=== PATIENT | male | born 1975 | race Two or more races ===

== ENCOUNTER 2024-03-19 11:59 | Outpatient (REF) | payer MEDICAID, OTHER, SELFPAY ==
--- NOTE | ~2024-03-19 | XR_ITS ---
EXAMINATION: XR HAND, BILATERAL CLINICAL INFORMATION: Pain COMPARISON: None available at the time of this dictation. TECHNIQUE: Frontal oblique lateral right and left hand FINDINGS: Mild degenerative osteoarthritic changes involving the first carpometacarpal joints bilaterally. There is no fracture or dislocation. Radiocarpal, intercarpal, carpometacarpal, metacarpophalangeal and interphalangeal joints are intact. There are no osteolytic or osteoblastic lesions. There are no bone erosions. Surrounding soft tissue unremarkable. XR/XR hand RT min 3V IMPRESSION: No evidence of erosive arthritis. Mild degenerative osteoarthritic changes.
--- NOTE | ~2024-03-19 | XR_ITS ---
EXAMINATION: XR HAND, BILATERAL CLINICAL INFORMATION: Pain COMPARISON: None available at the time of this dictation. TECHNIQUE: Frontal oblique lateral right and left hand FINDINGS: Mild degenerative osteoarthritic changes involving the first carpometacarpal joints bilaterally. There is no fracture or dislocation. Radiocarpal, intercarpal, carpometacarpal, metacarpophalangeal and interphalangeal joints are intact. There are no osteolytic or osteoblastic lesions. There are no bone erosions. Surrounding soft tissue unremarkable. XR/XR hand LT min 3V IMPRESSION: No evidence of erosive arthritis. Mild degenerative osteoarthritic changes.
--- NOTE | ~2024-03-19 | XR_ITS ---
EXAMINATION: XR knee LT 4V, XR knee RT 4V CLINICAL INFORMATION: Reason for Exam b/l hand and knee pain COMPARISON: None available at the time of this dictation. TECHNIQUE: frontal, lateral, tunnel and patella sunrise views 4 views 8 side total of 8 views. FINDINGS: BONES: No fracture or dislocation is present. JOINTS: Mild narrowing of joint spaces and small developed osteophyte from articular edges symmetrically involving both knees medial, lateral compartments and patellofemoral joints. No joint effusions on either side. Articular surfaces remain smooth. SOFT TISSUE: Normal XR/XR knee RT 4V IMPRESSION: Mild bilateral tricompartment degenerative osteoarthritis involving medial and lateral compartments bilaterally.
--- NOTE | ~2024-03-19 | XR_ITS ---
EXAMINATION: XR knee LT 4V, XR knee RT 4V CLINICAL INFORMATION: Reason for Exam b/l hand and knee pain COMPARISON: None available at the time of this dictation. TECHNIQUE: frontal, lateral, tunnel and patella sunrise views 4 views 8 side total of 8 views. FINDINGS: BONES: No fracture or dislocation is present. JOINTS: Mild narrowing of joint spaces and small developed osteophyte from articular edges symmetrically involving both knees medial, lateral compartments and patellofemoral joints. No joint effusions on either side. Articular surfaces remain smooth. SOFT TISSUE: Normal XR/XR knee LT 4V IMPRESSION: Mild bilateral tricompartment degenerative osteoarthritis involving medial and lateral compartments bilaterally.
== END 2024-03-19 12:00 | disposition home or self-care (01) ==
LOC: HO.HHCX 11:59
PROVIDERS: Visit Provider Family Medicine
DX: M25.562 Pain in left knee (principal); M25.561 Pain in right knee; M79.642 Pain in left hand; M79.641 Pain in right hand
CPT/HCPCS: 36415; 73130; 73564; 80048; 80061; 80076; 82043; 82306; 82570; 83036; 84439; 84443; 85027; 86592; 86704; 86706; 86708; 86803; 87340; 87389

== ENCOUNTER 2024-03-19 12:31 | Outpatient (REF) | payer MEDICAID, SELFPAY ==
[2024-03-19 13:40] LABS: Hematocrit 44.5 % (42.0-52.0); Hemoglobin 15.2 g/dl (14.0-18.0); Mean Corpuscular HGB Conc 34.2 g/dl (31.0-36.0); Mean Corpuscular Hemoglobin 30.6 pg (27.0-33.0); Mean Corpuscular Volume 89.7 fL (80.0-98.0); Mean Platelet Volume 11.4 fL (9.4-12.4); Platelet Count 232 X10*3/uL (160-400); Red Blood Count 4.96 X10*6/uL (4.60-5.80); Red Cell Distribution Width 12.9 % (11.0-16.0); White Blood Count 6.8 X10*3/uL (4.8-10.8)
[2024-03-19 14:05] LABS: Estimated Average Glucose 111 mg/dL; Hemoglobin A1c % 5.5 % (<6.0)
[2024-03-19 14:29] LABS: Creatinine Urine 45.04 mg/dL; Microalbum/Creatinine Ratio Ur 55.5 ug/mg cr (<30)
[2024-03-19 14:31] LABS: Alanine Aminotransferase 25 U/L (0-40); Albumin Level 4.7 g/dL (3.5-5.0); Alkaline Phosphatase 141 U/L (39-117); Anion Gap 11 (12-20); Aspartate Amino Transferase 23 U/L (5-37); Bilirubin Direct 0.2 mg/dL (0.0-0.5); Bilirubin Total 0.7 mg/dL (0.0-1.0); Blood Urea Nitrogen 16 mg/dL (9-16); Calcium 9.5 mg/dL (8.4-10.2); Carbon Dioxide 26 mmol/L (22-29); Chloride 106 mmol/L (96-108); Cholesterol 247 mg/dL (<200); Estimated Glomerular Filt Rate > 60; Glucose Random 112 mg/dL (60-115); HDL Cholesterol 53 mg/dL (>40); LDL Cholesterol Calculated 177 mg/dL (<100); Potassium 4.4 mmol/L (3.3-5.1); Sodium 139 mmol/L (135-145); Total Protein 8.4 g/dL (6.5-8.0); Triglycerides 88 mg/dL (<150)
[2024-03-19 14:47] LABS: Free T4 (Free Thyroxine) 0.88 ng/dL (0.71-1.85); Thyroid Stimulating Hormone 0.22 uIU/mL (0.32-4.0); Vitamin D 25-OH Total 12.6 ng/mL (>30)
[2024-03-20 04:33] LABS: HBS Num1 0.31 mIU/mL (0-7.99); HBc Num1 0.15 S/CO (0.00-0.79); HBsAGNum1 0.23 S/CO (0.00-0.99); HIV AB/AG Nonreactive (Nonreactive); HIV Num 1 0.05 S/CO (0.00-0.99); Hepatitis A Antibody IgG REACTIVE (Nonreactive); Hepatitis B Core Antibody Nonreactive (Nonreactive); Hepatitis B Surface Antigen Negative (Negative); ~HepC Num1 0.14 S/CO (0.00-0.79); ~Hepatitis A Antibody IgG 11.49 S/CO (0.00-0.99); ~Hepatitis B Surface Antibody NONREACTIVE (Nonreactive); ~Hepatitis C Antibody Nonreactive (Nonreactive)
[2024-03-22 09:44] LABS: RPR Rapid Plasma Reagin NON-REACTIVE (NON-REACTIVE)
== END 2024-03-19 12:32 | disposition home or self-care (01) ==
LOC: HO.HHCL 12:31
PROVIDERS: Visit Provider Family Medicine
DX: Z00.00 Encounter for general adult medical examination without abnormal findings (principal); I10 Essential (primary) hypertension; M25.50 Pain in unspecified joint; Z68.27 Body mass index [BMI] 27.0-27.9, adult
CPT/HCPCS: 36415; 80048; 80061; 80076; 82043; 82306; 82570; 83036; 84439; 84443; 85027; 86592; 86704; 86706; 86708; 86803; 87340; 87389

== ENCOUNTER 2024-07-13 07:59 | Outpatient (REF) | payer MEDICAID, SELFPAY ==
--- NOTE | ~2024-07-13 | XR_ITS ---
EXAMINATION: XR ORBITS CLINICAL INDICATION: Pre-MRI screening. TECHNIQUE: 2 views of the paranasal sinuses. Two Martinez views are submitted. No Steven view is submitted. COMPARISON: None. FINDINGS: No radiopaque foreign body is identified. The right maxillary sinus appears completely opacified. Left maxillary sinus mucosal thickening. Recommend clinical correlation. The bones appear unremarkable. XR/XR pre mri screening IMPRESSION: Findings as above. Electronically signed by: Malcolm Francis MD 07/13/2024 10:24 AM GILMA
== END 2024-07-13 08:00 | disposition home or self-care (01) ==
LOC: HO.XRAY 07:59
PROVIDERS: PCP Family Medicine; Visit Provider Radiology Diagnostic Radiology
DX: Z13.89 Encounter for screening for other disorder (principal)

== ENCOUNTER 2024-07-19 10:56 | Outpatient (REF) | payer MEDICAID, SELFPAY ==
[2024-07-19] MEDS: gadobutroL 10 ML VIAL IVPUSH (12:02)
== END 2024-07-19 10:57 | disposition home or self-care (01) ==
LOC: HO.MRI 10:56
PROVIDERS: PCP Family Medicine; Visit Provider Family Medicine
DX: H31.8 Other specified disorders of choroid (principal)
CPT/HCPCS: 70553; A9585

== ENCOUNTER 2025-06-27 08:53 | Outpatient (REF) | payer MEDICAID, SELFPAY ==
--- OUTSIDE RECORDS SUMMARY | 2025-06-27 09:28 | XMS_ITS | Clinical Summary ---
Author Organization [employer] Address [address] [facility] [address] [place] [address] Care Team Providers Care Audiovisual Lead Technician Name Role Phone AkiJodie Primary Care Provider Allergies Active Allergy Reactions Criticality Noted Date Comments Pollen Extract Runny nose 01/01/2024 Medications ibuprofen 800 MG tablet Take 400 mg by mouth every 6 (six) hours if needed for mild pain. Active Blood Pressure kit 1 each 1 (one) time per week. 1 kit 03/19/20 24 Active Diclofenac Sodium 1 % gel Apply 2 g topically if needed in the morning, at noon, in the evening, and at bedtime (pain). 150 g 3 03/19/20 24 Active baclofen (Lioresal) 10 MG tablet TAKE 1 TABLET THREE TIMES DAILY IN THE MORNING, AT NOON, AND AT BEDTIME FOR MUSCLE SPASMS 60 tablet 1 5 8:57 AM EST 07/05/20 24 Active fluticasone (Flonase) 50 MCG/ACT nasal spray Administer 1 spray into each nostril Once per day. Shake gently. Before first use, prime pump. After use, clean tip and replace cap. 48 g 12/01/19 25 Active acetaminophen (Tylenol 8 Hour) 650 MG ER tablet TAKE 1 TABLET EVERY 8 HOURS NEEDED FOR MILD PAIN. DO NOT BREAK, CRUSH, DISSOLVE OR CHEW 40 tablet 1 5 8:57 AM EST 01/29/20 25 Active Additional Information Patient not taking.Reported on 04/22/2025 cholecalcifer ol (Vitamin D-3) 50 MCG (1999 UT) capsule TAKE 1 CAPSULE BY MOUTH EVERY DAY 90 capsule 1 03/25/20 25 Active hydroCHLOROth iazide (HYDRODiuril) 25 MG tablet Take 1 tablet (25 mg) by mouth Once per day. 90 tablet 3 06/21/20 25 Active losartan (Cozaar) 25 MG tablet Take 1 tablet (25 mg) by mouth Once per day. 90 tablet 3 1:57 PM EST 06/21/20 25 026 Active losartan (Cozaar) 25 MG tablet Take 1 tablet (25 mg) by mouth Once per day. 90 tablet 03/25/20 24 025 Discontinued(Re order (will not trigger notification to Pharmacy)) hydroCHLOROth iazide (HYDRODiuril) 25 MG tablet TAKE 1 TABLET BY MOUTH DAILY 90 tablet 1 04/20/20 25 025 Discontinued(Re order (will not trigger notification to Pharmacy)) Active Problems Problem Noted Date Diagnosed Date Hyperopia 06/21/2025 Vitamin D deficiency 06/21/2025 Dental caries 04/22/2025 Periodontal disease 04/22/2025 Healthcare maintenance 03/25/2024 Assessment & Plan (03/25/2024 5:51 PM EDT): Spoke w PCP today who will f up recent abnormal labs ,order today TFT to repeat in 1 week Osteoarthritis 03/19/2024 BMI 27.0-27.9,adult 03/19/2024 Essential hypertension 03/19/2024 Assessment & Plan (03/25/2024 5:51 PM EDT): BP 164/90 Manually in his left arm -improved from before -labs 03/19/24 Microalb + chem and CBC wnl,Lfts wnl,only alk phos 141 ,TSH 0.22 ,normal T4 ,lipids elevated ,low vit D -advised Pt to avoid chronic NSAIDS use -states using aprox 1-2 a month -advised low salt diet,, diet ,exercise -start losartan 25 mg daily -will need to monitor w PCP chem for recently started HDCTZ and now losartan chosen for proteinuria -has apt w RN to check BP 03/31/2024 Encounters Date Type Department Care Team Description 06/21/2025 10:00 AM EST Office Visit [facility] [address] [place] [id number] Jodie Prabhakar DO Essential hypertension (Primary Dx); Low TSH level; Vitamin D deficiency; Healthcare maintenance; Encounter for immunization 06/21/2025 Travel 06/18/2025 Telephone [facility] [address] [place] [address] Jodie Prabhakar DO Chart Prep 06/14/2025 Patient Outreach [facility] [address] [place] [address] Jodie Prabhakar DO Pre-visit Planning ((Unable to reach for PVP screening, LVM) to be completed in office ) 06/08/2025 Telephone [facility] [address] [place] [address] Jodie Prabhakar DO Recall Appointment 06/08/2025 Travel 05/16/2025 Travel 04/22/2025 3:30 PM EDT Office Visit [facility] [address] [place] [address] Raul Padron DDS Dental caries (Primary Dx); Periodontal disease 04/20/2025 Refill [facility] [address] [place] [address] Jodie Prabhakar DO 03/31/2025 9:00 AM EDT Office Visit [facility] [address] [place] [address] Nuha Taylor, OD Choroidal fold of right eye (Primary Dx) 03/31/2025 Travel from Last 3 Months Immunizations Immunization Administration Dates Next Due Pneumococcal Conjugate PCV 20 06/21/2025 Tdap 03/19/2024 Family History Medical History Relation Name Comments Cancer Father Diabetes Mother Hypertension Mother No Known Problems Sister Relation Name Status Comments Father Mother Sister Social History Tobacco Use Types Packs/Day Years Used Date Smoking Tobacco: Never Smokeless Tobacco: Never Tobacco Cessation:Counseling Given: Not Answered Alcohol Use Standard Drinks/Week Comments Not Currently 0 (1 standard drink = 0.6 oz pur e alcohol) Depression Answer Date Recorded Patient Health Questionnaire-9 Score 2 03/19/2024 Patient Health Questionnaire-9 Score 2 03/19/2024 Last PHQ-9: Questionnaire Data Not on file 0 03/19/2024 Housing Stability Answer Date Recorded What is your housing situation today? I have jasvir macias 03/05/[address] you li ve. Do you have problems with any of the following? None of the above 03/05/2024 Food Insecurity Answer Date Recorded Within the past 12 months, y ou worried that your food would run out before you got money to buy more: Never True 03/05/2024 Within the past 12 months,th e food you bought just didn't last and you didn't have enough money to get more: Never True 09/2023 Transportation Answer Date Recorded In the past 12 months, has l ack of transportation kept you from medical appts, meetings, work or from getting things needed for daily living? No 03/05/2024 Utilities Answer Date Recorded In the past 12 months, has t he electric, gas, oil or water company threatened to shut off services in your home? No 03/05/2024 Depression Answer Date Recorded Patient Health Questionnaire-2 Score 0 03/19/2024 Internet Access Answer Date Recorded Internet Access Q1 Yes 04/02/2024 Internet Access Q2 Not on file 04/02/2024 Sex and Gender Information Value Date Recorded Sex Assigned at Male 01/01/2024 8:51 AM EDT Legal Sex Male 10:28 AM EDT Gender Identity Male 01/01/2024 8:51 AM EDT Sexual Orientation Straight 01/01/2024 8: 51 AM EDT Last Filed Vital Signs Vital Sign Reading Time Taken Comments Blood Pressure 148/90 06/21/2025 9:59 AM EST Pulse 73 06/21/2025 9:59 AM EST Temperature 35.8 C (96.4 F) 06/21/2025 9:59 AM EST Respiratory Rate 20 06/21/2025 9:59 AM EST Oxygen Saturation 98% 06/21/2025 9:59 AM EST Inhaled Oxygen Concentration - - Weight 77.6 kg (171 lb) 06/21/2025 9:59 AM EST Height 167.6 cm (5' 6 ) 06/21/2025 9:59 AM EST Body Mass Index 27.6 06/21/2025 9:59 AM EST Plan of Treatment Upcoming Encounters Date Type Department Care Team (Late st Contact Info) Description 10/06/2025 10:15 AM EST Office Visit [facility] [address] [place] [address] Lisy Carrillo Health Maintenance Due Date Last Done Comments CT Colonography 1973 Colonoscopy 1973 Colorectal Cancer Screening 1973 FIT DNA/Cologuard 1973 FIT 1973 FOBT 1973 Sigmoidoscopy 1973 Disability Screening 1973 Alcohol/Substance Use Screening 1985 Family Planning (PISQ) 1988 Hepatitis B Vaccines (1 of 3 - 19+ 3-dose series) 1992 Zoster Vaccines (1 of 2) 2023 Dental Prophylaxis 07/04/2024 01/01/2024 SDOH Screening 03/05/2025 03/05/2024 Depression Screening 03/19/2025 03/19/2024, 03/19/2024 COVID-19 Vaccine (2 - 2024-2 6 season) 2025 11/10/2020 Influenza Vaccine (#1) 2025 Dental Oral Exam 10/21/2025 04/22/2025, 01/01/2024 Tobacco Screening 04/22/2026 04/22/2025 Dental X-Ray: Bitewings 04/23/2026 04/22/20, 01/01/2024 Dental X-Ray: Full Mouth 01/01/2027 01/01/2024 Lipid Panel 03/19/2029 03/19/2024 DTaP/Tdap/Td Vaccines (2 - T d or Tdap) 03/19/2034 03/19/2024 RSV Patients and Patients Aged 60 years or older (1 - 1-dose 75+ series) 2048 HIV Screening Completed 03/19/2024 Hepatitis C Screening Completed 03/19/2024 Pneumococcal Vaccine: 50+ Years Completed 06/21/2025 HIB Vaccines Aged Out No longer eligi ble based on patient's age to complete this topic HPV Vaccines Aged Out No longer eligi ble based on patient's age to complete this topic Hepatitis A Vaccines Aged Out No long er eligible based on patient's age to complete this topic IPV Vaccines Aged Out No longer eligi ble based on patient's age to complete this topic Meningococcal B Vaccine Aged Out No l onger eligible based on patient's age to complete this topic Meningococcal Vaccine Aged Out No nikhil can eligible based on patient's age to complete this topic RSV under 20 months Aged Out No longe r eligible based on patient's age to complete this topic Rotavirus Vaccines Aged Out No longer eligible based on patient's age to complete this topic Procedures Procedure Name Priority Date/Time Associated Diagnosis Comments CASE PRESENTATION, DETAILED AND EXTENSIVE TREATMENT PLANNING Routine 04/22/2025 3:30 PM EDT BITEWINGS - 4 RADIOGRAPHIC IMAGES Routine 04/22/2025 3:30 PM EDT INTRAORAL - PERIAPICAL FIRST RADIOGRAPHIC IMAGE Routine 04/22/2025 3:30 PM EDT INTRAORAL - PERIAPICAL EACH ADDITIONAL RADIOGRAPHIC IMAGE Routine 04/22/2025 3:30 PM EDT PERIODIC ORAL EVALUATION - ESTABLISHED PATIENT Routine 04/22/2025 3:30 PM EDT OCT, RETINA - OU - BOTH EYES Routine 03/31/2025 9:00 AM EDT Choroidal fold of right eye HEPATITIS C AB W/REFL TO HCV RNA, QN, PCR Routine 03/19/2024 12:34 PM EDT Routine history and physical examination of adult Essential hypertension Polyarthralgia BMI 27.0-27.9,adult HIV 1/2 ANTIGEN/ANTIBODY, FOURTH GENERATION W/RFL Routine 03/19/2024 12:34 PM EDT Routine history and physical examination of adult Essential hypertension Polyarthralgia BMI 27.0-27.9,adult LIPID PANEL, STANDARD Routine 03/19/2024 12:34 PM EDT Routine history and physical examination of adult Essential hypertension Polyarthralgia BMI 27.0-27.9,adult PROPHYLAXIS - ADULT Routine 01/01/2024 1 1:30 AM EDT Necrosis of dental pulp Periodontal disease Dental caries Dental abscess INTRAORAL - COMPLETE SERIES OF RADIOGRAPHIC IMAGES Routine 01/01/2024 11:30 AM EDT Necrosis of dental pulp Periodontal disease Dental caries Dental abscess from Last 3 Months or Most Recently Relevant to Health Maintenance Results * OCT, Retina - OU - Both Eyes (03/31/2025 9:00 AM EDT) Narrative Nuha Taylor, OD - 04/05/2025 4:11 PM EDT OCT [facility] [employer] Optical Coherence Tomography Interpretation Report Reliability: OD: 61, good quality image OS: 61, good quality image Measurements: Central subfoveal thickness OD: 236 microns OS: 226 microns Test findings: OD: Horizontal chorioretinal folds extending from optic nerve throughout posterior pole, all layers intact, no IRF/subretinal fluid (SRF). Some drusen superior macula - stable OS: No chorioretinal folds present, all layers intact, no IRF/subretinal fluid (SRF) - stable Impression and Plan: Idiopathic chorioretinal folds left eye (OS). Monitor. Nuha Taylor OD OPHTH TOMOGRAPHY Final Result * Hepatitis C Antibody with Reflex to HCV, RNA, Quantitative, Real-Time PCR (03/19/2024 12:34 PM EDT) Hepatitis C Antibody Nonreactive Nonreactive [facility] Comment:Antibodies to HCV no t detected; does not exclude early acuteHCV infection. Blood Venous blood specimen / Unknown 03/19/2024 12:34 PM EDT 03/19/2024 1:16 PM EDT Jodie Prabhakar DO LAB BLOOD ORDERABLES Final R esult [facility] [address] [place] [phone] * HIV-1/2 Antigen and Antibodies, Fourth Generation, with Reflexes (03/19/2024 12:34 PM EDT) HIV AB/AG Nonreactive Nonreactive [facility] Comment:HIV-1 p24 Ag and/or HIV-1/HIV-2 Ab not detected.A test result that is nonreactive does not exclude thepossibility of exposure to or infection with HIV-1 and/orHIV-2. Nonreactive results in this assay for individualswith prior exposure to HIV-1 and/or HIV-2 may be due toantigen and antibody levels that are below the limit ofdetection of this assay.The [employer] HIV Ag/Ab Combo assay result andsupplemental assay results should be interpreted inconjunction with the patient's clinical presentation,history and other laboratory results. If the results areinconsistent with clinical evidence, additional testing issuggested to confirm the result. Blood Venous blood specimen / Unknown 03/19/2024 12:34 PM EDT 03/19/2024 1:16 PM EDT Jodie Prabhakar LAB BLOOD ORDERABLES Final R esult Performing Organization Address [facility] Co de Phone Number [facility] [address] [place] [address] [phone] * (ABNORMAL) Lipid Panel, Standard (03/19/2024 12:34 PM EDT) Triglycerides 88 <150 mg/dL [facility] Comment:Desirable Triglyceri de: less than 150 mg/dLBorderline High Triglyceride 150-199 mg/dLHigh Triglyceride: 200-499 mg/dLVery High Triglyceride: greater than or equal to 5OO mg/dL Cholesterol 247(H) <200 mg/dL [facility] Comment:Desirable Cholestero l: less than 200 mg/dLBorderline High Cholesterol: 200-239 mg/dLHigh Cholesterol: greater than 239 mg/dL LDL Cholesterol Calculated 177(H) <100 mg/dL [facility] Comment:Desirable LDL: less than 100 mg/dLNear Optimal/Above Optimal LDL: 110- 129 mg/dLBorderline High LDL: 130-159 mg/dLHigh LDL: 160-189 mg/dLVery High LDL: greater than or equal to 190 mg/dL HDL Cholesterol 53 >40 mg/dL [facility] Comment:Desirable HDL: great er than 40 mg/dL Note: This HDL assay may give artificially low results in patients with liver disease. Blood Venous blood specimen / Unknown 03/19/2024 12:34 PM EDT 03/19/2024 1:16 PM EDT Jodie Prabhakar DO LAB BLOOD ORDERABLES Final R esult Performing Organization Address [facility]/ZIP Co de Phone Number [facility] [address] [place] [address] [phone] from Last 3 Months or Most Recently Relevant to Health Maintenance Insurance [place] [facility] MEDICAID LIMITED ADULT DENTAL - HSN FULL ([place]) [place] [id number] [place] [id number] Care Teams Audiovisual Lead Technician Relationship Specialty Start Date End Date Jodie Prabhakar DO [address] [place] [address] [place] [address] PCP - General Family Medicine 03/19/24
--- OUTSIDE RECORDS SUMMARY | 2025-06-27 09:28 | XMS_ITS | Encounter Summary ---
Author Organization [employer] Address [address] [facility] [address] [place] [address] Care Team Providers Care Home Agent Name Role Phone Jodie Prabhakar DO Primary Care Provider + [phone] Reason for Visit * Reason Onset Date Comments Med Refill 10/05/2024 Encounter Details Date Type Department Care Team ([facility] st Contact Info) Description 10/05/2024 Refill [facility] [address] [place] [address] Jodie Prabhakar DO [address] [place] [address] Social History Tobacco Use Types Packs/Day Years Used Date Smoking Tobacco: Never Smokeless Tobacco: Never Alcohol Use Standard Drinks/Week Comments Not Currently [...] Orientation Straight 01/01/2024 8: 51 AM EDT documented as of this encounter Plan of Treatment Upcoming Encounters Date Type Department Care Team (Late st Contact Info) Description 10/06/2025 10:15 AM EST Office Visit [facility] [address] [place] [address] Lisy Carrillo documented as of this encounter Visit Diagnoses Not on filedocumented in this encounter Additional Health Concerns Assessment Noted Time PHQ-9 Depression Total Score: 2 03/19/20 24 10:26 AM EDT documented as of this encounter Care Teams Home Agent Relationship Specialty Start Date End Date Jdoie Prabhakar DO [address] [place] [address] PCP - General Family Medicine 03/19/24 documented as of this encounter
--- OUTSIDE RECORDS SUMMARY | 2025-06-27 09:28 | XMS_ITS | Encounter Summary ---
Author Organization [employer] Address [address] [facility] [address] [place] [address] Care Team Providers Care Corporate Traffic Manager Name Role Phone Jodie Prabhakar DO Primary Care Provider + [phone] Reason for Visit * Reason Onset Date Comments Med Refill 11/27/2024 Encounter Details Date Type Department Care Team ([facility] st Contact Info) Description 11/27/2024 Refill [facility] [address] [place] [address] Jodie Prabhakar DO [address] [place] [address] Social History Tobacco Use Types Packs/Day Years [...] Description 10/06/2025 10:15 AM EST Office Visit [facility] [address] [place] [address] Lisy Carrillo documented as of this encounter Visit Diagnoses Not on filedocumented in this encounter Additional Health Concerns Assessment Noted Time PHQ-9 Depression Total Score: 2 03/19/20 24 10:26 AM EDT documented as of this encounter Care Teams Corporate Traffic Manager Relationship Specialty Start Date End Date Jodie Prabhakar DO [address] [place] [address] PCP - General Family Medicine 03/19/24 documented as of this encounter
[2025-06-27 11:29] LABS: Hematocrit 47.0 % (42.0-52.0); Hemoglobin 15.8 g/dl (14.0-18.0); Mean Corpuscular HGB Conc 33.6 g/dl (31.0-36.0); Mean Corpuscular Hemoglobin 31.0 pg (27.0-33.0); Mean Corpuscular Volume 92.3 fL (80.0-98.0); NRBC Abs Auto 0.000 X10*3/uL (0.0-0.012); NRBC Pct Auto 0.0 /100WBC (0.0-0.2); Platelet Count 201 X10*3/uL (160-400); Red Blood Count 5.09 X10*6/uL (4.60-5.80); White Blood Count 8.0 X10*3/uL (4.8-10.8)
[2025-06-27 12:14] LABS: HBS Num1 0.00 mIU/mL (0-7.99); HBsAGNum1 0.50 S/CO (0.00-0.99); Hepatitis B Surface Antigen Negative (Negative); ~HepC Num1 0.10 S/CO (0.00-0.79); ~Hepatitis B Surface Antibody NONREACTIVE (Nonreactive); ~Hepatitis C Antibody Nonreactive (Nonreactive)
[2025-06-27 15:13] LABS: Alanine Aminotransferase 41 U/L (0-40); Albumin Level 4.6 g/dL (3.5-5.0); Alkaline Phosphatase 147 U/L (39-117); Anion Gap 12 (12-20); Aspartate Amino Transferase 32 U/L (5-37); Blood Urea Nitrogen 14 mg/dL (9-16); Calcium 9.3 mg/dL (8.4-10.2); Carbon Dioxide 26 mmol/L (22-29); Chloride 107 mmol/L (96-108); Cholesterol 233 mg/dL (<200); Estimated Glomerular Filt Rate > 60; Free T4 (Free Thyroxine) 0.89 ng/dL (0.71-1.85); HDL Cholesterol 43 mg/dL (>40); Potassium 3.8 mmol/L (3.3-5.1); Sodium 141 mmol/L (135-145); Thyroid Stimulating Hormone 1.00 uIU/mL (0.32-4.0); Total Protein 8.0 g/dL (6.5-8.0); Triglycerides 199 mg/dL (<150)
== END 2025-06-27 08:54 | disposition home or self-care (01) ==
LOC: HO.HHCL 08:53
PROVIDERS: PCP Family Medicine; Visit Provider Family Medicine
DX: I10 Essential (primary) hypertension (principal); Z11.3 Encounter for screening for infections with a predominantly sexual mode of transmission; Z11.59 Encounter for screening for other viral diseases
CPT/HCPCS: 36415; 80048; 80061; 80076; 82306; 83036; 84439; 84443; 85027; 86592; 86706; 86803; 87340

== ENCOUNTER 2025-06-28 08:09 | Outpatient (REF) | payer MEDICAID, SELFPAY ==
--- OUTSIDE RECORDS SUMMARY | 2025-06-28 08:21 | XMS_ITS | Clinical Summary ---
Author Organization [employer] Address [address] [facility] 7t [place] [address] Care Team Providers Care Rental Car Ferry Driver Name Role Phone AkiJodie Primary Care Provider [phone] Allergies Active Allergy Reactions Criticality Noted Date [...] Description 06/21/2025 10:00 AM EST Office Visit [facility] [address] [place] [phone] Jodie Prabhakar DO Essential hypertension (Primary Dx); Low TSH level; Vitamin D deficiency; Healthcare maintenance; Encounter for immunization 06/21/2025 Travel 06/18/2025 Telephone [facility] [address] [place] [address] Jodie Prabhakar DO Chart Prep 06/14/2025 Patient Outreach [facility] [address] [place] [address] Jodie Prabhakar DO Pre-visit Planning ((Unable to reach for PVP screening, LVM) to be completed in office ) 06/08/2025 Telephone [facility] [address] [place] [address] Jodie Prabhakar DO Recall Appointment 06/08/2025 Travel 05/16/2025 Travel 04/22/2025 3:30 PM EDT Office Visit [facility] ADULT DENTAL [address] [place] [address] Raul Padron DDS Dental caries (Primary Dx); Periodontal disease 04/20/2025 Refill [facility] [address] [place] [address] Jodie Prabhakar DO 03/31/2025 9:00 AM EDT Office Visit [facility] OPTOMETRY [address] [place] [address] Nuha Taylor, OD Choroidal fold of right [...] Description 10/06/2025 10:15 AM EST Office Visit [facility] ADULT DENTAL [address] [place] [address] Lisy Carrillo Health Maintenance Due Date Last [...] Screening 04/22/2026 04/22/2025 Dental X-Ray: Bitewings 04/23/2026 04/22/20 25, 01/01/2024 Diabetes: Hemoglobin A1C 06/27/2026 025, 03/19/2024 Dental X-Ray: Full Mouth 01/01/2027 01/01/2024 Lipid Panel 06/27/2030 06/27/2025, 03/19/2024 DTaP/Tdap/Td Vaccines (2 - T d or Tdap) 03/19/2034 03/19/2024 RSV Patients and Patients Aged 60 years or older (1 - 1-dose 75+ series) 2048 HIV Screening Completed 03/19/2024 Pneumococcal Vaccine: 50+ Years Completed 06/21/2025 Hepatitis C Screening Completed 06/27/2025 , 03/19/2024 HIB Vaccines Aged Out No longer eligi [...] Procedure Name Priority Date/Time Associated Diagnosis Comments HEPATITIS B SURFACE ANTIBODY, QUALITATIVE Routine 06/27/2025 9:09 AM EST Essential hypertension HEPATITIS C AB W/REFL TO HCV RNA, QN, PCR Routine 06/27/2025 9:09 AM EST Essential hypertension HEPATITIS B SURFACE ANTIGEN, EIA Routine 06/27/2025 9:09 AM EST Essential hypertension CBC Routine 06/27/2025 9:09 AM EST Essential hypertension BASIC METABOLIC PANEL Routine 06/27/2025 9:09 AM EST Essential hypertension HEMOGLOBIN A1C Routine 06/27/2025 9:09 AM EST Essential hypertension HEPATIC FUNCTION PANEL Routine 06/27/2025 9:09 AM EST Essential hypertension TSH Routine 06/27/2025 9:09 AM EST Essential hypertension LIPID PANEL, STANDARD Routine 06/27/2025 9:09 AM EST Essential hypertension VITAMIN D,25-OH,TOTAL,IA Routine 06/27/2025 9:09 AM EST Essential hypertension T4, FREE Routine 06/27/2025 9:09 AM EST Essential hypertension CASE PRESENTATION, DETAILED AND EXTENSIVE TREATMENT PLANNING [...] AM EDT Choroidal fold of right eye HIV 1/2 ANTIGEN/ANTIBODY, FOURTH GENERATION W/RFL Routine [...] Recently Relevant to Health Maintenance Results * Vitamin D, 25-Hydroxy, Total, Immunoassay (06/27/2025 9:09 AM EST) Vitamin D 25-OH Total 33.0 >30 ng/mL [facility] Comment: Health Based Reference Values*< 20 ng/mL Jonsuvthl18-54 ng/mL Insufficient> 30 ng/mL Sufficient*Concepción ORNELAS. N Engl J Med. 2007;357:266-280There is no well-established upper level of normal vitamin Dlevels. Some laboratories use 50 ng/mL as an upper limit ofnormal. However, toxicity is patient-dependent and may occurat any level. Careful correlation with the patient'spresentation is necessary and, if there is concern forvitamin D toxicity, treatment should be consideredirrespective of the serum level.Care must be taken in interpreting Vitamin D results fromdifferent laboratories and methodologies. Published datademonstrated that results from patients undergoinghemodialysis may show a negative bias when tested withvarious automated 25-OH vitamin D assays when compared toLC-MS/MS.When testing samples from patients whose predominant form ofVitamin D is Vitamin D2, such as patients receiving VitaminD2 supplementation, results that are subtherapeutic shouldbe confirmed with another method such as LC-MS/MS. Blood Venous blood specimen / Unknown 06/27/2025 9:09 AM EST 06/27/2025 11:01 AM EST Jodie Prabhakar DO LAB BLOOD ORDERABLES Final R esult Performing Organization Address [facility]/ZIP Co de Phone Number [facility] [address] [place] [phone] * Hepatitis C Antibody with Reflex to HCV, RNA, Quantitative, Real-Time PCR (06/27/2025 9:09 AM EST) Hepatitis C Antibody Nonreactive Nonreactive [facility] Comment:Antibodies to HCV no t detected; does not exclude early acuteHCV infection. Blood Venous blood specimen / Unknown 06/27/2025 9:09 AM EST 06/27/2025 11:01 AM EST Jodie Prabhakar DO LAB BLOOD ORDERABLES Final R esult Performing Organization Address [facility] Co de Phone Number [facility] [address] [place] [phone] * Hepatitis B surface antigen, EIA (06/27/2025 9:09 AM EST) Pathologist [facility] Hepatitis B Surface Ag Negative Negative [facility] Blood Venous blood specimen / Unknown 06/27/2025 9:09 AM EST 06/27/2025 11:01 AM EST Jodie Aki DO LAB BLOOD ORDERABLES Final R esult Performing Organization Address City/[facility] Co de Phone Number [facility] [address] [place] [phone] * Hepatitis B Surface Antibody, Qualitative (06/27/2025 9:09 AM EST) ~Hepatitis B Surface Antibody NONREACTIVE Nonreactive [facility] Comment:Nonreactive: < 8.00 mIU/mL Blood Venous blood specimen / Unknown 06/27/2025 9:09 AM EST 06/27/2025 11:01 AM EST Jodie Prabhakar DO LAB BLOOD ORDERABLES Final R esult [facility] [address] [place] [phone] * CBC (06/27/2025 9:09 AM EST) White Blood Count 8.0 4.8 - 10.8 X10*3/uL [facility] Red Blood Count 5.09 4.60 - 5.80 X10*6/uL [facility] Hemoglobin 15.8 14.0 - 18.0 g/dl [facility] Hematocrit 47.0 42.0 - 52.0 % [facility] Mean Corpuscular Volume 92.3 80.0 - 98.0 fL [facility] Mean Corpuscular Hemoglobin 31.0 27.0 - 33.0 pg [facility] Mean Corpuscular HGB Conc 33.6 31.0 - 36.0 g/dl [facility] Red Cell Distribution Width 12.5 11.0 - 16.0 % [facility] Platelet Count 201 160 - 400 X10*3/uL [facility] Mean Platelet Volume 11.6 9.4 - 12.4 fL [facility] NRBC Pct Auto 0.0 0.0 - 0.2 /100WBC [facility] NRBC Abs Auto 0.000 0.0 - 0.012 X10*3/uL [facility] Blood Venous blood specimen / Unknown 06/27/2025 9:09 AM EST 06/27/2025 11:01 AM EST Jodie Prabhakar DO LAB BLOOD ORDERABLES Final R esult [facility] [address] [place] [phone] * TSH (06/27/2025 9:09 AM EST) Thyroid Stimulating Hormone 1.00 0.32 - 4.0 uIU/mL [facility] Comment:TSH 3rd Generation ( [facility]) Blood Venous blood specimen / Unknown 06/27/2025 9:09 AM EST 06/27/2025 11:01 AM EST Jodie Prabhakar DO LAB BLOOD ORDERABLES Final R esult [facility] [address] [place] [phone] * T4, Free (06/27/2025 9:09 AM EST) Free T4 (Free Thyroxine) 0.89 0.71 - 1.85 ng/dL [facility] Blood Venous blood specimen / Unknown 06/27/2025 9:09 AM EST 06/27/2025 11:01 AM EST Jodie Prabhakar DO LAB BLOOD ORDERABLES Final R esult [facility] [address] [place] [phone] * Hemoglobin A1c (06/27/2025 9:09 AM EST) Hemoglobin A1c 5.7 <6.0 % [facility] Comment:Hemoglobin A1C Refer ence Range Adults: 4.8 - 6.0 % Non diabetic: < 6.0 % Goal: < 7.0 %Additional Action Suggested: > 8.0 %Note: Hemoglobin A1c results are invalid for patients with abnormal amounts of HbF. Blood transfusions may impact the HbA1c concentration in the patient sample. Estimated Average Glucose 117 mg/dL [facility] Comment:eAG = Estimated ave rage glucose which is %A1C expressed asaverage glucose, using the formula of the L3G-YcsujisNtgtees Glucose study (ADAG), Diabetes Care, Vol.31,#8,2007 Blood Venous blood specimen / Unknown 06/27/2025 9:09 AM EST 06/27/2025 11:01 AM EST Jodie Prabhakar DO LAB BLOOD ORDERABLES Final R esult Performing Organization Address City/[facility]/ZIP Co de Phone Number [facility] [address] [place] [phone] * (ABNORMAL) Hepatic Function Panel (06/27/2025 9:09 AM EST) Bilirubin, Total 0.7 0.0 - 1.0 mg/dL [facility] Bilirubin, Direct 0.2 0.0 - 0.5 mg/dL [facility] Aspartate Amino Transferase 32 5 - 37 U/L [facility] Alanine Aminotransferase 41(H) 0 - 40 U/L [facility] Total Protein 8.0 6.5 - 8.0 g/dL [facility] Albumin Level 4.6 3.5 - 5.0 g/dL [facility] Alkaline Phosphatase 147(H) 39 - 117 U/L [facility] Blood Venous blood specimen / Unknown 06/27/2025 9:09 AM EST 06/27/2025 11:01 AM EST Jodie Prabhakar DO LAB BLOOD ORDERABLES Final R esult Performing Organization Address City/[facility]/ZIP Co de Phone Number [facility] [address] [place] [phone] * (ABNORMAL) Lipid Panel, Standard (06/27/2025 9:09 AM EST) Triglycerides 199(H) <150 mg/dL [facility] Comment:Desirable Triglyceri de: less than 150 mg/dLBorderline High Triglyceride 150-199 mg/dLHigh Triglyceride: 200-499 mg/dLVery High Triglyceride: greater than or equal to 5OO mg/dL Cholesterol 233(H) <200 mg/dL [facility] Comment:Desirable Cholestero l: less than 200 mg/dLBorderline High Cholesterol: 200-239 mg/dLHigh Cholesterol: greater than 239 mg/dL LDL Cholesterol Calculated 151(H) <100 mg/dL [facility] Comment:Desirable LDL: less than 100 mg/dLNear Optimal/Above Optimal LDL: 110- 129 mg/dLBorderline High LDL: 130-159 mg/dLHigh LDL: 160-189 mg/dLVery High LDL: greater than or equal to 190 mg/dL HDL Cholesterol 43 >40 mg/dL [facility] Comment:Desirable HDL: great er than 40 mg/dL Note: This HDL assay may give artificially low results in patients with liver disease. Blood Venous blood specimen / Unknown 06/27/2025 9:09 AM EST 06/27/2025 11:01 AM EST us Jodie Prabhakar DO LAB BLOOD ORDERABLES Final R esult [facility] [address] [place] [phone] * (ABNORMAL) Basic Metabolic Panel (06/27/2025 9:09 AM EST) Sodium 141 135 - 145 mmol/L [facility] Potassium 3.8 3.3 - 5.1 mmol/L [facility] Chloride 107 96 - 108 mmol/L [facility] Carbon Dioxide 26 22 - 29 mmol/L [facility] Anion Gap 12 12 - 20 [facility] Urea Nitrogen (BUN) 14 9 - 16 mg/dL [facility] Creatinine, Serum 0.81 0.5 - 1.4 mg/dL [facility] Estimated Glomerular Filt Rate >60 [facility] Comment:Chronic Kidney Disea se: Estimated GFR < 60 mL/min/1.46i4Pveast Kidney Disease: Estimated GFR < 15 mL/min/1.73m2 Glucose 118(H) 60 - 115 mg/dL [facility] Calcium 9.3 8.4 - 10.2 mg/dL [facility] Blood Venous blood specimen / Unknown 06/27/2025 9:09 AM EST 06/27/2025 11:01 AM EST us Jodie Prabhakar DO LAB BLOOD ORDERABLES Final R esult [facility] [address] [place], [place] [phone] * OCT, Retina - OU - Both Eyes (03/31/2025 9:00 AM EDT) Nuha Kang, OD - 04/05/2025 4:11 PM EDT OCT [...] Taylor OD OPHTH TOMOGRAPHY Final Result * HIV-1/2 Antigen and Antibodies, Fourth Generation, with Reflexes (03/19/2024 12:34 PM EDT) HIV AB/AG Nonreactive Nonreactive [facility] Comment:HIV-1 p24 Ag and/or HIV-1/HIV-2 Ab not detected.A test result that is nonreactive does not exclude thepossibility of exposure to or infection with HIV-1 and/orHIV-2. Nonreactive results in this assay for individualswith prior exposure to HIV-1 and/or HIV-2 may be due toantigen and antibody levels that are below the limit ofdetection of this assay.[facility] [place] HIV Ag/Ab Combo assay result andsupplemental assay results should be interpreted inconjunction with the patient's clinical presentation,history and other laboratory results. If the results areinconsistent with clinical evidence, additional testing issuggested to confirm the result. Blood Venous blood specimen / Unknown 03/19/2024 12:34 PM EDT 03/19/2024 1:16 PM EDT Jodie Prabhakar DO LAB BLOOD ORDERABLES Final R esult [facility] [address] [place] [phone] [phone] from Last 3 Months or Most Recently Relevant to Health Maintenance Insurance HEALTH [facility] - HSN FULL (MEDICAID) Care Teams Rental Car Ferry Driver Relationship Specialty Start Date End Date Jodie Prabhakar DO [address] [place] [id number] PCP - General Family Medicine 03/19/24
--- OUTSIDE RECORDS SUMMARY | 2025-06-28 08:21 | XMS_ITS | Encounter Summary ---
Author Organization [employer] Address [address] [facility] 7t [place] [address] Care Team Providers Care Fiscal Officer Name Role Phone Jodie Prabhakar DO Primary Care Provider + [phone] Reason for Visit * Reason Onset Date Comments Med Refill 11/27/2024 Encounter Details Date Type Department Care Team ([facility] st Contact Info) Description 11/27/2024 Refill [facility] [address] [place] [address] Jodie Prabhakar DO [address] [place] [address] Social History Tobacco Use Types Packs/Day Years [...] Description 10/06/2025 10:15 AM EST Office Visit [facility] ADULT DENTAL [address] [place] [address] Lisy Carrillo documented as of this encounter Visit Diagnoses Not on filedocumented in this encounter Additional Health Concerns Assessment Noted Time PHQ-9 Depression Total Score: 2 03/19/20 24 10:26 AM EDT documented as of this encounter Care Teams Fiscal Officer Relationship Specialty Start Date End Date Jodie Prabhakar DO [address] [place] [address] PCP - General Family Medicine 03/19/24 documented as of this encounter
--- OUTSIDE RECORDS SUMMARY | 2025-06-28 08:21 | XMS_ITS | Encounter Summary ---
Author Organization [employer] Address [address] [facility] [address] [place] [address] Care Team Providers Care Pharmacognosist Name Role Phone Jodie Prabhakar DO Primary Care Provider + [phone] Reason for Visit * Reason Onset Date Comments Med Refill 10/05/2024 Encounter Details Date Type Department Care Team ([facility] st Contact Info) Description 10/05/2024 Refill [facility] MED[facility]INE [address] [place] [address] Jodie Prabhakar DO [address] [place] [address] Social History Tobacco Use Types Packs/Day Years [...] Description 10/06/2025 10:15 AM EST Office Visit [facility] ADULT DENTAL [address] [place] [address] Lisy Carrillo documented as of this encounter Visit Diagnoses Not on filedocumented in this encounter Additional Health Concerns Assessment Noted Time PHQ-9 Depression Total Score: 2 03/19/20 24 10:26 AM EDT documented as of this encounter Care Teams Pharmacognosist Relationship Specialty Start Date End Date Jodie Prabhakar DO [address] [place] [address] PCP - General Family Medicine 03/19/24 documented as of this encounter
--- NOTE | 2025-06-28 08:28 | ECG_ITS ---
Test Reason : HTN Blood Pressure : */* mmHG Vent. Rate : 64 BPM Atrial Rate : 64 BPM P-R Int : 132 ms QRS Dur : 96 ms QT Int : 388 ms P-R-T Axes : 34 50 45 degrees QTcB Int : 400 ms Normal sinus rhythm Normal ECG No previous ECGs available Referred By: Jodie Prabhakar Electronically Signed By: Adam Cerna
== END 2025-06-28 08:10 | disposition home or self-care (01) ==
LOC: HO.HHCL 08:09
PROVIDERS: PCP Family Medicine; Visit Provider Family Medicine
DX: I10 Essential (primary) hypertension (principal)
CPT/HCPCS: 82043; 82570; 93005

== ENCOUNTER → 2025-06-28 08:28 | Outpatient (BNV) | payer MEDICAID, SELFPAY | PROVIDERS: PCP Family Medicine; Visit Provider Internal Medicine Cardiovascular Disease | DX: I10 Essential (primary) hypertension (principal) | CPT/HCPCS: 93010 ==